=== PATIENT | female | born 2005 | race Caucasian/White ===

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

== ENCOUNTER 2023-01-09 13:47 | Emergency (ER) | payer MEDICAID ==
[~2023-01-09] VITALS: Ht 167.6 cm; Wt 86.2 kg
--- NOTE | 2023-01-09 13:50 | NUR ---
PT BIB SELF WITH FAMILY FRIEND AT BEDSIDE WITH C/O OF CRAMPING AND HEAVY BLEEDING FOR THE PAST 2 DAYS. PT HAS NOT HAD A MENSTRAL CYCLE SINCE SEPTEMBER 2021 PT HAD BEEN FEELING NAUSEA FOR THE PAST 4 DAYS AND DECIDED TO TAKE A TEST 2 DAYS AGO IT CAME BACK POSITIVE AND THEN LAST NIGHT THE HEAVY BLEEDING AND CRAMPING BEGAN. DENIES ALLERGIES, SOB, N/V/D.
--- NOTE | 2023-01-09 13:50 | NUR ---
Placed in room 6 . Placed on quality assurance monitor final, blood pressure machine and pulse oximeter. To gown for exam. Side rails up.
[2023-01-09 14:00] VITALS: BP_SYST 117
--- NOTE | 2023-01-09 14:15 | NUR ---
ER Dr. Prajapati at bedside examining patient.
[2023-01-09 15:58] LABS: BASOPHILS % (AUTO) 0.8 % (0.0-2.0); EOSINOPHILS # (AUTO) 0.1 K/uL (0.0-0.4); EOSINOPHILS % (AUTO) 2.3 % (0.0-4.0); HEMATOCRIT 36.7 % (36-48); HEMOGLOBIN 12.2 g/dL (12.0-16.0); LYMPHOCYTES # (AUTO) 1.9 K/uL (1.0-5.5); LYMPHOCYTES % (AUTO) 32.8 % (20.5-51.5); MEAN CORPUSCULAR HEMOGLOBIN 27 pg (27-31); MEAN CORPUSCULAR HGB CONC 33 % (32-36); MEAN CORPUSCULAR VOLUME 82 fL (79.0-98.0); MONOCYTES # (AUTO) 0.4 K/uL (0.0-1.0); MONOCYTES % (AUTO) 6.3 % (1.7-9.3); NEUTROPHILS # (AUTO) 3.4 K/uL (1.8-7.7); NEUTROPHILS % (AUTO) 57.8 % (40.0-70.0); PLATELET COUNT (AUTO) 190 K/uL (130-430); RED BLOOD CELL COUNT(AUTO) 4.46 MIL/uL (4.2-6.2); RED CELL DISTRIBUTION WIDTH 17.9 % (9.0-15.0); WHITE BLOOD COUNT (AUTO) 5.8 K/uL (4.5-11.0)
--- NOTE | 2023-01-09 16:00 | NUR ---
LAB AT BEDSIDE WITH PT.
[2023-01-09 16:06] LABS: CALCIUM 8.5 mg/dL (8.4-11.0); CREATININE 0.86 mg/dL (0.55-1.30)
[2023-01-09 16:17] LABS: TOTAL BILIRUBIN 0.4 mg/dL (0.0-1.0)
--- NOTE | 2023-01-09 16:50 | NUR ---
Patient given written and verbal discharge instructions and verbalizes understanding. ER MD discussed with patient the results and treatment provided. Patient in stable condition. ID arm band removed. Patient educated on pain management and to follow up with PMD. Pain Scale 0. Opportunity for questions provided and answered. Medication side effect fact sheet provided.
[2023-01-09 19:08] VITALS: BP_SYST 89
== END 2023-01-09 16:50 | disposition home or self-care (01) ==
LOC: SED 13:47
DX: N94.89 Other specified conditions associated with female genital organs and menstrual cycle (principal); N93.9 Abnormal uterine and vaginal bleeding, unspecified; R10.30 Lower abdominal pain, unspecified; J45.909 Unspecified asthma, uncomplicated; Z79.899 Other long term (current) drug therapy
CPT/HCPCS: 36415; 80053; 84702; 85025; 99283